=== PATIENT | male | born 1945 | race Caucasian/White ===

== ENCOUNTER → 2020-07-07 | Outpatient (CLI) | payer BC ==
--- NOTE | 2020-07-08 01:28 | MR ---
EXAMINATION TYPE: MR knee LT wo con DATE OF EXAM: 07/07/2020 COMPARISON: None HISTORY: Left knee pain x 6 mos Multiplanar multiecho imaging of the left knee was performed without contrast. There is a moderate knee joint effusion. There is large popliteal cyst that measures 6 x 2 cm. There is intact posterior cruciate ligament. There is complete tear of the anterior cruciate ligament . There is truncation and abnormal signal involving the posterior horn of the medial meniscus. There is moderate narrowing of the medial joint space. There is increased subchondral signal on both sides of the medial joint space. This is consistent with degenerative cyst formation and bone bruise. There i s medial displacement of the medial meniscus. There is significant increased signal in the medial asp ect medial meniscus. Lateral meniscus appears fairly normal. The collateral ligaments appear intact. There is mild subcuta neous edema on the medial aspect of the knee. There are some degenerative cysts at the base of the ti bial spines. Impression Moderate knee joint effusion with popliteal cyst. Complete tear of the anterior cruciate ligament. Extensive complex tear of the medial and posterior aspect of the medial meniscus. 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 Edema and degenerative cyst formation in the medial femoral and tibial condyles. No fracture seen.
== END | disposition home or self-care (01) ==
LOC: RADMRIMAIN 19:01
PROVIDERS: ATTEND Orthopaedic Surgery
DX: S83.232A Complex tear of medial meniscus, current injury, left knee, initial encounter (principal); S83.512A Sprain of anterior cruciate ligament of left knee, initial encounter; M17.12 Unilateral primary osteoarthritis, left knee; M71.22 Synovial cyst of popliteal space [Baker], left knee; M85.662 Other cyst of bone, left lower leg